=== PATIENT | female | born 1945 | race Two or more races ===

== ENCOUNTER 2022-09-21 11:29 | Inpatient (IN) | payer OTHER ==
[~2022-09-21] VITALS: Ht 152.4 cm; Wt 52.2 kg
[~2022-09-21 11:29] MED LIST: ACIDOPHILUS1 EAC3 PO; METFORMIN HCL500 MG; SYNTHROID50 MCG; TUSSI PRES-B L120 M1 PO; ZANTAC150 MG PO
[2022-09-24] MEDS ORDERED: EVISTA60 MG PO (15:23)
[2022-09-24] MEDS ORDERED: ATORVASTATIN CA10 MG PO (15:24)
[2022-09-24] MEDS ORDERED: CHILDREN'S ASPI81 MG PO (15:24)
[2022-09-24] MEDS ORDERED: VITAMIN C500 M6 PO (15:25)
[2022-09-24] MEDS ORDERED: VITAMIN D-40010 MCG PO (15:25)
[2022-09-28] MEDS ORDERED: METFORMIN HCL500 M4 (13:27)
[2022-09-28] MEDS ORDERED: LOSARTAN POTASS25 MG (13:27)
[2022-09-29] MEDS ORDERED: INTESTINEX680 M1 PO (16:28)
[2022-09-29] MEDS ORDERED: HYOSCYAMINE0.125 M1 SL (16:28)
== END 2022-09-29 16:58 | disposition home or self-care (01) | DRG 331 ==
LOC: O/R 09-27 09:51 → SURH 09-27 09:51 → SURG-SUITE 09-27 12:00 → SURG 09-27 14:56 → SURH 09-27 15:38 → SURG-SUITE 09-27 19:45 → SURH 09-29 16:58
PROVIDERS: ADMIT Surgery; ATTEND Surgery
PROC: 0DQP4ZZ Repair Rectum, Percutaneous Endoscopic Approach (ICD-10-PCS; principal; 2022-09-27 19:45)
DX: K62.3 Rectal prolapse (principal); K59.01 Slow transit constipation; E03.9 Hypothyroidism, unspecified; I11.9 Hypertensive heart disease without heart failure; E11.9 Type 2 diabetes mellitus without complications

== ENCOUNTER 2023-10-22 10:56 | Inpatient (IN) | payer OTHER ==
[~2023-10-22] VITALS: Ht 152.4 cm; Wt 49.4 kg
[~2023-10-22 10:56] MED LIST changes: +ATORVASTATIN CA10 MG PO; +CHILDREN'S ASPI81 MG PO; +EVISTA60 MG PO; +HYOSCYAMINE0.125 M1 SL; +INTESTINEX680 M1 PO; +LOSARTAN POTASS25 MG; +METFORMIN HCL500 M4; -SYNTHROID50 MCG; +SYNTHROID50 MCG PO; +VITAMIN C500 M6 PO; +VITAMIN D-40010 MCG PO
[2023-10-28] MEDS ORDERED: CEFTRIAXONE SODIUM 2,000 MG in 0.9 % SODIUM CHLORIDE 50 ML IV ONE (13:30)
[2023-10-28] MEDS ORDERED: METRONIDAZOLE/SODIUM CHLORIDE 200 ML IV ONE (13:30)
[2023-10-28] MEDS ORDERED: OxyCODONE HCL 5 MG TABLET (ROXICODONE) PO PRN (15:45)
[2023-10-28] MEDS ORDERED: 0.9 % SODIUM CHLORIDE 1,000 ML IV SCH (15:45)
[2023-10-28] MEDS ORDERED: DEXTROSE 50 % IN WATER 0.5 G/ML DISP.SYRIN IV PRN ×2 (15:45→17:00)
[2023-10-28] MEDS ORDERED: MORPHINE SULFATE 4 MG/ML CARTRIDGE IV PRN (15:45)
[2023-10-28] MEDS ORDERED: ONDANSETRON HCL 2 MG/ML VIAL IV PRN (15:45)
[2023-10-28] MEDS ORDERED: SUGAMMADEX SODIUM 200 MG/2 ML VIAL IV ONE (16:00)
[2023-10-28] MEDS ORDERED: ENALAPRILAT DIHYDRATE 1.25 MG/ML VIAL IV PRN (17:00)
[2023-10-28] MEDS ORDERED: METRONIDAZOLE/SODIUM CHLORIDE 500 MG/100 ML PIGGYBACK IV SCH (17:00)
[2023-10-28] MEDS ORDERED: INSULIN LISPRO 1,000 UNIT/10 ML UNITS SUBCUTANEO PRN (17:00)
[2023-10-28] MEDS ORDERED: POLYETHYLENE GLYCOL 3350 17 GM BLIST.PACK PO SCH (17:00)
[2023-10-28] MEDS ORDERED: GABAPENTIN 300 MG CAPSULE PO SCH (17:00)
[2023-10-28] MEDS ORDERED: HYOSCYAMINE SULFATE 0.125 MG TAB.SUBL SL SCH (17:00)
[2023-10-28 18:20] LABS: HEMATOCRIT 32.4 % (36.0-45.00); HEMOGLOBIN 10.8 g/dL (12.0-15.00); MEAN CELL VOLUME 86.7 fL (80.00-100.00); MEAN CORPUSCULAR HEMOGLOBIN 28.8 pg (27.00-32.0); MEAN CORPUSCULAR HGB CONC 33.2 g/dl (32.0-36.0); PLATELET COUNT 261 K/uL (150-450); RED BLOOD COUNT 3.74 M/uL (4.00-6.00); RED CELL DISTRIBUTION WIDTH 13.9 % (11.5-14.5)
[2023-10-28 18:27] LABS: ALBUMIN 2.6 gm/dL (3.4-5.0); CALCIUM 8.1 mg/dL (8.5-10.1); CREATININE SERUM 0.93 mg/dL (0.55-1.02); GFR 58.16; MAGNESIUM 1.6 mg/dL (1.8-2.4); PHOSPHOROUS 3.2 mg/dL (2.5-4.9); POTASSIUM 4.15 mEq/L (3.5-5.1)
[2023-10-28] MEDS ORDERED: ACETAMINOPHEN 500 MG GEL..CAP PO SCH (20:00)
[2023-10-28] MEDS ORDERED: FAMOTIDINE/PF 20 MG/2 ML VIAL IV PUSH SCH (21:00)
[2023-10-29] MEDS ORDERED: SYNTHROID 75 MCG (MARCA ORIGINAL) PO SCH (06:00)
[2023-10-29 07:50] LABS: HEMATOCRIT 30.4 % (36.0-45.00); HEMOGLOBIN 10.1 g/dL (12.0-15.00); MEAN CELL VOLUME 86.9 fL (80.00-100.00); MEAN CORPUSCULAR HGB CONC 33.4 g/dl (32.0-36.0); PLATELET COUNT 233 K/uL (150-450); RED BLOOD COUNT 3.49 M/uL (4.00-6.00); RED CELL DISTRIBUTION WIDTH 13.9 % (11.5-14.5)
[2023-10-29] MEDS ORDERED: LOSARTAN POTASSIUM 25 MG TABLET PO SCH (09:00)
[2023-10-29 09:01] LABS: ALBUMIN 2.3 gm/dL (3.4-5.0); CREATININE SERUM 0.99 mg/dL (0.55-1.02); GFR 54.11; MAGNESIUM 1.7 mg/dL (1.8-2.4); PHOSPHOROUS 3.6 mg/dL (2.5-4.9); POTASSIUM 5.35 mEq/L (3.5-5.1)
[2023-10-29] MEDS ORDERED: MAGNESIUM SULFATE IN WATER 50 ML IV NR (11:15)
[2023-10-29] MEDS ORDERED: SOD FERRIC GLUC COMPLX/SUCROSE 62.5 MG in 0.9 % SODIUM CHLORIDE 50 ML IV SCH ×2 (12:27→17:00)
[2023-10-29] MEDS ORDERED: Cyanocobalamin/Mecobalamin 1 TAB.SL SL SCH ×2 (12:27→17:00)
[2023-10-29 13:07] LABS: ABG pCO2 29.9 mmHg (35-45); BASE EXCESS -4.7 mmol/l; BICARBONATE 18.5 mmol/l (23-25); SaO2 96.2 %
[2023-10-29 13:08] LABS: Tco2 19.4 mmol/l; allen test SATISFACTORY; o2 21 %; puncture site RADIAL RIGHT
[2023-10-29] MEDS ORDERED: ATORVASTATIN CALCIUM 10 MG TABLET PO SCH (17:00)
[2023-10-29] MEDS ORDERED: ENOXAPARIN SODIUM 40 MG/0.4 ML SYRINGE SUBCUTANEO SCH (17:00)
[2023-10-30] MEDS ORDERED: SYNTHROID 50 MCG (MARCA ORIGINAL) PO SCH (06:00)
[2023-10-30 06:57] LABS: HEMATOCRIT 26.5 % (36.0-45.00); MEAN CELL VOLUME 86.3 fL (80.00-100.00); MEAN CORPUSCULAR HGB CONC 33.7 g/dl (32.0-36.0); PLATELET COUNT 232 K/uL (150-450); RED BLOOD COUNT 3.07 M/uL (4.00-6.00); RED CELL DISTRIBUTION WIDTH 14.1 % (11.5-14.5)
[2023-10-30 07:14] LABS: MEAN CORPUSCULAR HEMOGLOBIN 28.9 pg (27.00-32.0)
[2023-10-30 07:15] LABS: HEMOGLOBIN 8.9 g/dL (12.0-15.00)
[2023-10-30 07:18] LABS: CALCIUM 7.7 mg/dL (8.5-10.1); CREATININE SERUM 0.89 mg/dL (0.55-1.02); GFR 61.18; MAGNESIUM 2.1 mg/dL (1.8-2.4); POTASSIUM 3.83 mEq/L (3.5-5.1)
[2023-10-30 07:37] LABS: PHOSPHOROUS 1.5 mg/dL (2.5-4.9)
[2023-10-30] MEDS ORDERED: KETOROLAC TROMETHAMINE 30 MG VIAL IV NR (07:45)
[2023-10-30] MEDS ORDERED: POTASSIUM PHOS,M-BASIC-D-BASIC 15 MM in 0.9 % SODIUM CHLORIDE 250 ML IV NR (08:45)
[2023-10-30] MEDS ORDERED: levoFLOXacin IN DEXTROSE 5 % 150 ML IV SCH (09:00)
[2023-10-30] MEDS ORDERED: ENOXAPARIN SODIUM 40 MG/0.4 ML SYRINGE SUBCUTANEO SCH (09:00)
[2023-10-30 18:26] LABS: HEMATOCRIT 29.8 % (36.0-45.00); HEMOGLOBIN 9.9 g/dL (12.0-15.00); MEAN CORPUSCULAR HEMOGLOBIN 29.3 pg (27.00-32.0); MEAN CORPUSCULAR HGB CONC 33.3 g/dl (32.0-36.0); PLATELET COUNT 243 K/uL (150-450); RED BLOOD COUNT 3.39 M/uL (4.00-6.00); RED CELL DISTRIBUTION WIDTH 14.3 % (11.5-14.5)
[2023-10-30] MEDS ORDERED: GABAPENTIN 300 MG CAPSULE PO SCH (21:00)
[2023-10-31 08:08] LABS: HEMATOCRIT 26.9 % (36.0-45.00); MEAN CELL VOLUME 85.8 fL (80.00-100.00); MEAN CORPUSCULAR HEMOGLOBIN 28.8 pg (27.00-32.0); MEAN CORPUSCULAR HGB CONC 33.6 g/dl (32.0-36.0); PLATELET COUNT 233 K/uL (150-450); RED BLOOD COUNT 3.13 M/uL (4.00-6.00); RED CELL DISTRIBUTION WIDTH 14.4 % (11.5-14.5)
[2023-10-31] MEDS ORDERED: FUROsemide 20 MG/2 ML VIAL IV STA (08:24)
[2023-10-31] MEDS ORDERED: GABAPENTIN 100 MG CAPSULE PO SCH (09:00)
[2023-11-01] MEDS ORDERED: FAMOtidine 20 MG TABLET PO SCH (09:00)
[2023-11-01] MEDS ORDERED: LEVOFLOXACIN500 MG PO (10:26)
[2023-11-01] MEDS ORDERED: HEMATOGEN FORT1 EACH PO (10:27)
[2023-11-01] MEDS ORDERED: MIRALAX17 GM PO (10:27)
[2023-11-01] MEDS ORDERED: INTESTINEX680 M1 PO (10:27)
[2023-11-01] MEDS ORDERED: TYLENOL ARTHRI650 MG PO (10:28)
[2023-11-01] MEDS ORDERED: NEURONTIN300 MG PO (10:28)
== END 2023-11-01 12:39 | disposition home or self-care (01) | DRG 329 ==
LOC: SURH 10-28 07:00 → O/R 10-28 09:17 → SURH 10-28 11:00 → SURG 10-28 19:42
PROVIDERS: Internal Medicine Geriatric Medicine; ADMIT Surgery; ATTEND Surgery
PROC: 0DBP4ZZ Excision of Rectum, Percutaneous Endoscopic Approach (ICD-10-PCS; 2023-10-28)
PROC: 0DQP4ZZ Repair Rectum, Percutaneous Endoscopic Approach (ICD-10-PCS; 2023-10-28)
PROC: 0DJD8ZZ Inspection of Lower Intestinal Tract, Via Natural or Artificial Opening Endoscopic (ICD-10-PCS; 2023-10-28)
PROC: 0DTN4ZZ Resection of Sigmoid Colon, Percutaneous Endoscopic Approach (ICD-10-PCS; principal; 2023-10-28 07:00)
PROC: BB24YZZ Computerized Tomography (CT Scan) of Bilateral Lungs using Other Contrast (ICD-10-PCS; 2023-10-30)
PROC: B246ZZZ Ultrasonography of Right and Left Heart (ICD-10-PCS; 2023-10-31)
DX: K62.3 Rectal prolapse (principal); K65.8 Other peritonitis; K57.30 Diverticulosis of large intestine without perforation or abscess without bleeding; K66.0 Peritoneal adhesions (postprocedural) (postinfection); K59.01 Slow transit constipation; R15.9 Full incontinence of feces; D64.89 Other specified anemias; R06.02 Shortness of breath; E87.6 Hypokalemia; M25.571 Pain in right ankle and joints of right foot; I11.9 Hypertensive heart disease without heart failure; E03.9 Hypothyroidism, unspecified; E11.9 Type 2 diabetes mellitus without complications; Z79.84 Long term (current) use of oral hypoglycemic drugs

== ENCOUNTER 2024-01-03 21:38 | Emergency (ER) | payer OTHER ==
[~2024-01-03] VITALS: Ht 152.4 cm; Wt 49.4 kg
[~2024-01-03 21:38] MED LIST changes: +HEMATOGEN FORT1 EACH PO; +LEVOFLOXACIN500 MG PO; +MIRALAX17 GM PO; +NEURONTIN300 MG PO; +TYLENOL ARTHRI650 MG PO
[2024-01-03] MEDS ORDERED: ONDANSETRON HCL 2 MG/ML VIAL ONE (22:20)
[2024-01-03] MEDS ORDERED: FAMOTIDINE/PF 20 MG/2 ML VIAL ONE (22:21)
[2024-01-03] MEDS ORDERED: 0.9 % SODIUM CHLORIDE 1,000 ML IV SCH (22:30)
[2024-01-03] MEDS ORDERED: ONDANSETRON HCL 2 MG/ML VIAL IV ONE (22:30)
[2024-01-03] MEDS ORDERED: FAMOTIDINE/PF 20 MG/2 ML VIAL IV PUSH ONE (22:30)
[2024-01-03 23:10] LABS: URINE APPEARANCE Clear; URINE BILIRRUBIN Negative (NEGATIVE); URINE BLOOD Small; URINE COLOR Yellow; URINE GLUCOSE Negative (NEGATIVE); URINE KETONE Negative (NEGATIVE); URINE LEUKOCYTE Small; URINE NITRATE Negative; URINE PROTEIN 30 (NEGATIVE); URINE UROBILINOGEN 0.2 E.U./dl
[2024-01-03 23:13] LABS: URINE BACTERIA 1870.9 uL (0.0-1933); URINE CAST 1.67 uL (0.0-1.40); URINE EPITHELIAL CELLS 9.4 uL (0.0-38.8); URINE RBC 3.2 uL (0.0-20.8); URINE WBC 80.2 uL (0.0-23.2)
[2024-01-03 23:31] LABS: BILIRUBIN TOTAL 0.63 mg/dL (0.3-1.2); CALCIUM 8.8 mg/dL (8.5-10.1); CREATININE SERUM 1.44 mg/dL (0.55-1.02); GFR 35.11; GLOBULINA 4.4 G/DL (2.4-3.5); POTASSIUM 3.18 mEq/L (3.5-5.1); TOTAL PROTEIN 7.4 gm/dL (6.4-8.2)
[2024-01-04 00:07] LABS: HEMATOCRIT 32.1 % (36.0-45.00); HEMOGLOBIN 10.5 g/dL (12.0-15.00); MEAN CELL VOLUME 88.7 fL (80.00-100.00); MEAN CORPUSCULAR HGB CONC 32.7 g/dl (32.0-36.0); PLATELET COUNT 216 K/uL (150-450); RED BLOOD COUNT 3.61 M/uL (4.00-6.00); RED CELL DISTRIBUTION WIDTH 14.8 % (11.5-14.5)
[2024-01-04] MEDS ORDERED: METRONIDAZOLE/SODIUM CHLORIDE 500 MG/100 ML PIGGYBACK IV ONE ×3 (00:15→00:45)
[2024-01-04] MEDS ORDERED: DIATRIZOATE MEGLUMINE, SODIUM 30 ML BOTTLE ONE (00:25)
[2024-01-04] MEDS ORDERED: ONDANSETRON HCL 2 MG/ML VIAL IV STA (00:46)
[2024-01-04] MEDS ORDERED: METOCLOPRAMIDE HCL 5 MG/ML VIAL IM STA (00:46)
[2024-01-04] MEDS ORDERED: METOCLOPRAMIDE HCL 5 MG/ML VIAL ONE (00:51)
[2024-01-04] MEDS ORDERED: ONDANSETRON HCL 2 MG/ML VIAL ONE (00:51)
== END 2024-01-04 05:16 | disposition home or self-care (01) ==
LOC: ER 21:38
PROVIDERS: Emergency Medicine
DX: K52.9 Noninfective gastroenteritis and colitis, unspecified (principal); R14.3 Flatulence; R14.1 Gas pain; R14.2 Eructation; R11.10 Vomiting, unspecified; E11.9 Type 2 diabetes mellitus without complications; Z79.84 Long term (current) use of oral hypoglycemic drugs; Z88.0 Allergy status to penicillin; Z88.5 Allergy status to narcotic agent; Z20.822 Contact with and (suspected) exposure to COVID-19
CPT/HCPCS: 36415; 74177; 93005; 96365; 96366; 96372; 99284; J2405 ×2; J2765; J3490 ×2; J7030; Q9965

== ENCOUNTER 2024-10-19 10:15 | Inpatient (IN) | payer OTHER ==
[~2024-10-19] VITALS: Ht 149.9 cm; Wt 48.1 kg
[2024-10-19] MEDS ORDERED: FARXIGA5 MG PO (13:17)
[2024-10-26] MEDS ORDERED: levoFLOXacin IN DEXTROSE 5 % 5 MG/ML PIGGYBAG IV ONE (07:30)
[2024-10-26] MEDS ORDERED: METRONIDAZOLE/SODIUM CHLORIDE 500 MG/100 ML PIGGYBACK IV ONE (07:30)
[2024-10-26] MEDS ORDERED: POVIDONE-IODINE 118 ML BOTT TOP ONE (07:30)
[2024-10-26] MEDS ORDERED: DEXTROSE 50 % IN WATER 0.5 G/ML VIAL IV PRN ×2 (09:30→15:00)
[2024-10-26] MEDS ORDERED: ONDANSETRON HCL 2 MG/ML VIAL IV PRN (09:30)
[2024-10-26] MEDS ORDERED: OxyCODONE HCL 5 MG TABLET (ROXICODONE) PO PRN (09:30)
[2024-10-26] MEDS ORDERED: 0.9 % SODIUM CHLORIDE 1,000 ML IV SCH (09:30)
[2024-10-26] MEDS ORDERED: MORPHINE SULFATE 4 MG/ML CARTRIDGE IV PRN (09:30)
[2024-10-26 11:12] LABS: BASO % 0.9 % (0.1-1.2); EOS # 0.09 (0.04-0.54); EOS % 1.1 % (0.7-7.0); LYMPH # 2.05 (1.18-3.74); LYMPH % 24.2 % (19.3-53.1); MEAN PLATELET VOLUME 11.90 fl (9.4-12.4); MONO # 0.70 (0.24-0.82); MONO % 8.3 % (4.7-12.5); NEUT # 5.52 (1.56-6.13); NEUT % 65.1 % (34.0-71.1); RED CELL DISTRIBUTION WIDTH 14.9 % (11.6-14.4)
[2024-10-26 12:15] LABS: BUN CREA RATIO 21.0 (7.0-25.0); CREATININE SERUM 0.99 mg/dL (0.55-1.02); GFR 53.97; GLUCOSE FASTING 105.0 mg/dL (65-100); OSMOLALITY SERUM 285.0 MOSM/KG (275-295)
[2024-10-26] MEDS ORDERED: HYOSCYAMINE SULFATE 0.125 MG TAB.SUBL SL SCH (13:00)
[2024-10-26] MEDS ORDERED: POTASSIUM PHOS,M-BASIC-D-BASIC 3 MM/ML VIAL IV NR (13:30)
[2024-10-26] MEDS ORDERED: ACETAMINOPHEN 500 MG GEL..CAP PO SCH (14:00)
[2024-10-26] MEDS ORDERED: ENALAPRILAT DIHYDRATE 1.25 MG/ML VIAL IV PRN (15:00)
[2024-10-26] MEDS ORDERED: INSULIN LISPRO 1,000 UNIT/10 ML UNITS SUBCUTANEO PRN (15:00)
[2024-10-26 16:00] VITALS: BP 110/61; O2SAT 97
[2024-10-26] MEDS ORDERED: METRONIDAZOLE/SODIUM CHLORIDE 500 MG/100 ML PIGGYBACK IV SCH (17:00)
[2024-10-26] MEDS ORDERED: GABAPENTIN 300 MG CAPSULE PO SCH (17:00)
[2024-10-26] MEDS ORDERED: POLYETHYLENE GLYCOL 3350 17 GM BLIST.PACK PO SCH (17:00)
[2024-10-26] MEDS ORDERED: CELECOXIB 200 MG CAPSULE PO SCH (21:00)
[2024-10-26] MEDS ORDERED: FAMOTIDINE/PF 20 MG/2 ML VIAL IV PUSH SCH (21:00)
[2024-10-27 01:11] VITALS: BP 115/61; O2SAT 95
[2024-10-27] MEDS ORDERED: PATIENTS OWN MEDICATION (MEDICAMENTO EN PISO) PO SCH (06:00)
[2024-10-27 06:56] LABS: BASO % 0.5 % (0.1-1.2); EOS # 0.14 (0.04-0.54); EOS % 1.3 % (0.7-7.0); LYMPH # 1.24 (1.18-3.74); LYMPH % 11.6 % (19.3-53.1); MEAN PLATELET VOLUME 11.90 fl (9.4-12.4); MONO # 0.73 (0.24-0.82); MONO % 6.8 % (4.7-12.5); NEUT # 8.48 (1.56-6.13); NEUT % 79.5 % (34.0-71.1); RED CELL DISTRIBUTION WIDTH 14.7 % (11.6-14.4)
[2024-10-27 07:26] LABS: BUN CREA RATIO 15.0 (7.0-25.0); CREATININE SERUM 0.75 mg/dL (0.55-1.02); GFR 74.35; GLUCOSE FASTING 93.0 mg/dL (65-100); OSMOLALITY SERUM 284.0 MOSM/KG (275-295)
[2024-10-27 08:39] VITALS: BP 91/50; O2SAT 95
[2024-10-27] MEDS ORDERED: MAGNESIUM SULFATE IN WATER 50 ML IV NR (11:00)
[2024-10-27 16:00] VITALS: BP 89/57; O2SAT 94
[2024-10-27] MEDS ORDERED: ATORVASTATIN CALCIUM 10 MG TABLET PO SCH (17:00)
[2024-10-27] MEDS ORDERED: ENOXAPARIN SODIUM 40 MG/0.4 ML SYRINGE SUBCUTANEO SCH (17:00)
[2024-10-27 17:59] VITALS: BP 111/63
[2024-10-28 00:21] VITALS: BP 109/73; O2SAT 97
[2024-10-28 07:57] LABS: BASO % 0.5 % (0.1-1.2); EOS # 0.71 (0.04-0.54); EOS % 7.2 % (0.7-7.0); LYMPH # 1.26 (1.18-3.74); LYMPH % 12.8 % (19.3-53.1); MEAN PLATELET VOLUME 10.50 fl (9.4-12.4); MONO # 0.71 (0.24-0.82); MONO % 7.2 % (4.7-12.5); NEUT # 7.06 (1.56-6.13); NEUT % 71.8 % (34.0-71.1); RED CELL DISTRIBUTION WIDTH 14.9 % (11.6-14.4)
[2024-10-28] MEDS ORDERED: TRAM1TAB98 PO (08:06)
[2024-10-28] MEDS ORDERED: PEPCID AC20 MG PO (08:06)
[2024-10-28 08:38] LABS: BUN CREA RATIO 12.0 (7.0-25.0); CREATININE SERUM 0.99 mg/dL (0.55-1.02); GFR 53.97; GLUCOSE FASTING 86.0 mg/dL (65-100); OSMOLALITY SERUM 290.0 MOSM/KG (275-295)
[2024-10-28 08:43] VITALS: BP 90/47; O2SAT 96
[2024-10-28] MEDS ORDERED: ENOXAPARIN SODIUM 40 MG/0.4 ML SYRINGE SUBCUTANEO SCH (09:00)
[2024-10-28 09:38] VITALS: BP 104/66
== END 2024-10-28 13:04 | disposition home or self-care (01) | DRG 331 ==
LOC: O/R 10-26 08:55 → SURH 10-26 08:55 → SURG 10-26 10:15 → SURH 10-26 12:43
PROVIDERS: Internal Medicine Geriatric Medicine; ADMIT Surgery; ATTEND Surgery
PROC: 0DBP7ZZ Excision of Rectum, Via Natural or Artificial Opening (ICD-10-PCS; 2024-10-26)
PROC: 0DQR0ZZ Repair Anal Sphincter, Open Approach (ICD-10-PCS; 2024-10-26)
PROC: 0DJD8ZZ Inspection of Lower Intestinal Tract, Via Natural or Artificial Opening Endoscopic (ICD-10-PCS; 2024-10-26)
PROC: 0DQR0ZZ Repair Anal Sphincter, Open Approach (ICD-10-PCS; 2024-10-26)
PROC: 0DTN8ZZ Resection of Sigmoid Colon, Via Natural or Artificial Opening Endoscopic (ICD-10-PCS; principal; 2024-10-26 11:30)
DX: K62.3 Rectal prolapse (principal); K59.01 Slow transit constipation; K57.30 Diverticulosis of large intestine without perforation or abscess without bleeding; D64.9 Anemia, unspecified